=== PATIENT | male | born 1995 | race Two or more races ===

== ENCOUNTER 2016-12-30 01:30 | Emergency (ER) | payer OTHER ==
--- NOTE | 2016-12-30 02:15 | EDPHY ---
H & P Stated Complaint: wants to be check for HIV Time Seen by Provider: 12/30/16 02:13 HPI/ROS: Chief complaint: Possible HIV exposure HPI: 21-year-old male is presenting requesting post exposure prophylaxis. Patient states that he engaged in unprotected anal intercourse several hours ago while intoxicated. Patient states that the partner was high risk any does not know them. He does not have a history of medical problems. Takes no medications. No allergies to medications. Denies any other complaints at this time. ROS: 10 point Review of Systems is negative except as noted in the HPI. Past medical history: None Medications: None Allergies: None Physical exam: Gen: Awake, Alert, No Distress HEENT: Nose: no rhinorrhea Eyes: PERRLA, EOMI Mouth: Moist mucosa Neck: Supple, no JVD Chest: nontender, lungs clear to auscultation Heart: S1, S2 normal, no murmur Abd: Soft, non-tender, no guarding Back: no CVA tenderness, no midline tenderness Ext: no edema, non-tender Skin: no rash Neuro: CN II-XII intact, Sensation grossly intact, Strength 5/5 in bilateral upper and lower extremities - Personal History Current Tetanus Diphtheria and Acellular Pertussis (TDAP): No - Medical/Surgical History Hx Asthma: No Hx Chronic Respiratory Disease: No Hx Diabetes: No Hx Cardiac Disease: No Hx Renal Disease: No Hx Cirrhosis: No Hx Alcoholism: No Hx HIV/AIDS: No Hx Splenectomy or Spleen Trauma: No - Social History Smoking Status: Never smoked Constitutional: Initial Vital Signs Temperature (C) 36.7 C 12/30/16 01:36 Heart Rate 89 12/30/16 01:36 Respiratory Rate 20 12/30/16 01:36 Blood Pressure 114/75 12/30/16 01:36 O2 Sat (%) 95 12/30/16 01:36 O2 Delivery Mode Room Air Allergies/Adverse Reactions: No Known Allergies Allergy (Unverified 12/30/16 01:35) Home Medications: Medication Instructions Recorded Emtricitabine/Tenofovir [Truvada 1 tab PO DAILY #3 tab 12/30/16 200MG/300MG (*)] Raltegravir [Isentress] 400 mg PO BID #6 tab 12/30/16 Medical Decision Making ED Course/Re-evaluation: 21-year-old male requesting HIV prophylaxis. - Data Points Laboratory Results: Laboratory Results 12/30/16 02:35 12/30/16 02:35 12/30/16 12/30/16 12/30/16 02:35 02:35 02:35 WBC RBC Hgb Hct MCV MCH MCHC RDW Plt Count MPV Neut % (Auto) Lymph % (Auto) [place] % (Auto) Eos % (Auto) Baso % (Auto) Nucleat RBC Rel Count Absolute Neuts (auto) Absolute Lymphs (auto) Absolute Monos (auto) Absolute Eos (auto) Absolute Basos (auto) Absolute Nucleated RBC Immature Gran % Immature Gran # Sodium 141 mEq/L mEq/L (134-144) Potassium 4.1 mEq/L mEq/L (3.5-5.2) Chloride 104 mEq/L mEq/L (97-110) Carbon Dioxide 25 mEq/l mEq/l (22-31) Anion Gap 12 mEq/L mEq/L (8-16) BUN 11 mg/dL mg/dL (7-23) Creatinine 0.9 mg/dL mg/dL (0.7-1.3) Estimated GFR > 60 Glucose 92 mg/dL mg/dL (70-100) Calcium 9.8 mg/dL mg/dL (8.5-10.4) Total Bilirubin 0.7 mg/dL mg/dL (0.1-1.4) Conjugated Bilirubin 0.3 mg/dL mg/dL (0.0-0.5) Unconjugated Bilirubin 0.4 mg/dL mg/dL (0.0-1.1) AST 18 IU/L IU/L (17-59) ALT 32 IU/L IU/L (21-72) Alkaline Phosphatase 50 IU/L IU/L (38-126) Total Protein 7.3 g/dL g/dL (6.3-8.2) Albumin 4.5 g/dL g/dL (3.5-5.0) Hep Bs Antigen Pending Hep Bs Antibody Pending Hep Bs Antibody, Quant Pending Hepatitis C Antibody Pending HIV 1&2 Antibody Pending 12/30/16 02:35 WBC 9.03 10^3/uL 10^3/uL (3.80-9.50) RBC 5.07 10^6/uL 10^6/uL (4.40-6.38) Hgb 15.2 g/dL g/dL (13.7-17.5) Hct 43.8 % % (40.0-51.0) MCV 86.4 fL fL (81.5-99.8) MCH 30.0 pg pg (27.9-34.1) MCHC 34.7 g/dL g/dL (32.4-36.7) RDW 12.0 % % (11.5-15.2) Plt Count 279 10^3/uL 10^3/uL (150-400) MPV 10.3 fL fL (8.7-11.7) Neut % (Auto) 78.4 % H % (39.3-74.2) Lymph % (Auto) 12.7 % L % (15.0-45.0) [place] % (Auto) 7.6 % % (4.5-13.0) Eos % (Auto) 0.8 % % (0.6-7.6) Baso % (Auto) 0.2 % L % (0.3-1.7) Nucleat RBC Rel Count 0.0 % % (0.0-0.2) Absolute Neuts (auto) 7.07 10^3/uL H 10^3/uL (1.70-6.50) Absolute Lymphs (auto) 1.15 10^3/uL 10^3/uL (1.00-3.00) Absolute Monos (auto) 0.69 10^3/uL 10^3/uL (0.30-0.80) Absolute Eos (auto) 0.07 10^3/uL 10^3/uL (0.03-0.40) Absolute Basos (auto) 0.02 10^3/uL 10^3/uL (0.02-0.10) Absolute Nucleated RBC 0.00 10^3/uL 10^3/uL (0-0.01) Immature Gran % 0.3 % % (0.0-1.1) Immature Gran # 0.03 10^3/uL 10^3/uL (0.00-0.10) Sodium Potassium Chloride Carbon Dioxide Anion Gap BUN Creatinine Estimated GFR Glucose Calcium Total Bilirubin Conjugated Bilirubin Unconjugated Bilirubin AST ALT Alkaline Phosphatase Total Protein Albumin Hep Bs Antigen Hep Bs Antibody Hep Bs Antibody, Quant Hepatitis C Antibody HIV 1&2 Antibody Medications Given: Discontinued Medications Raltegravir (Isentress) 400 mg PO EDNOW ONE Stop: 12/30/16 02:30 Last Admin: 12/30/16 02:56 Dose: 400 mg Departure - Departure Disposition: Home, Routine, Self-Care Clinical Impression: HIV exposure Condition: Good Instructions: Postexposure Prophylaxis (ED) Additional Instructions: Follow up with Dr. Billy, infectious disease, on Sunday. Continue taking your post exposure prophylaxis medications until your seen by the Infectious Disease doctor. Referrals: NONE *PRIMARY CARE P,. [Primary Care Provider] - As per Instructions Mary Beth Billy MD [Medical Doctor] - As per Instructions Prescriptions: Emtricitabine/Tenofovir [Truvada 200MG/300MG (*)] 1 tab PO DAILY #3 tab Raltegravir [Isentress] 400 mg PO BID #6 tab
[2016-12-30] MEDS ORDERED: RALTEGRAVIR 400 MG TAB PO ONE (02:29)
[2016-12-30] MEDS ORDERED: EMTRICITABINE/TENOFOVIR 200MG/300MG TAB PO ONE (02:43)
[2016-12-30 03:06] LABS: % IMMATURE GRANULYOCYTES 0.3 % (0.0-1.1); ABSOLUTE IMMATURE GRANULOCYTES 0.03 10^3/uL (0.00-0.10); ADD DIFF? NO; ADD MORPH? NO; ADD SCAN? NO; ATYPICAL LYMPHOCYTE FLAG 0 (0-99); FRAGMENT RBC FLAG 0 (0-99); HEMATOCRIT 43.8 % (40.0-51.0); HEMOGLOBIN 15.2 g/dL (13.7-17.5); LEFT SHIFT FLG 0 (0-99); LIPEMIA HEMOLYSIS FLAG 90 (0-99); MEAN CELL HEMOGLOBIN CONCENTR. 34.7 g/dL (32.4-36.7); MEAN CELL VOLUME 86.4 fL (81.5-99.8); MEAN PLATELET VOLUME 10.3 fL (8.7-11.7); PLATELET CLUMPS FLAG 0 (0-99); PLATELET COUNT 279 10^3/uL (150-400); RED BLOOD CELL COUNT 5.07 10^6/uL (4.40-6.38)
[2016-12-30 03:25] LABS: ALANINE AMINOTRANSFERASE 32 IU/L (21-72); ALBUMIN 4.5 g/dL (3.5-5.0); ALKALINE PHOSPHATASE 50 IU/L (38-126); ANION GAP 12 mEq/L (8-16); ASPARTATE AMINOTRANSFERASE 18 IU/L (17-59); BILIRUBIN,TOTAL 0.7 mg/dL (0.1-1.4); BILIRUBIN-CONJUGATED 0.3 mg/dL (0.0-0.5); BILIRUBIN-UNCONJUGATED 0.4 mg/dL (0.0-1.1); CALCIUM 9.8 mg/dL (8.5-10.4); CARBON DIOXIDE 25 mEq/l (22-31); CHLORIDE 104 mEq/L (97-110); CREATININE 0.9 mg/dL (0.7-1.3); GLOMERULAR FILTRATION RATE > 60; GLUCOSE 92 mg/dL (70-100); POTASSIUM 4.1 mEq/L (3.5-5.2); SODIUM 141 mEq/L (134-144); TOTAL PROTEIN 7.3 g/dL (6.3-8.2)
[2016-12-30 03:56] VITALS: BP 110/72; PULSE 80; RESP 16; TEMP 97.9; O2SAT 97
[2016-12-30] MEDS ORDERED: EMTRICITABINE/TENOFOVIR 200MG/300MG TAB PO SCH (08:00)
[2017-01-01 12:02] LABS: HEPATITIS Bs Ab QUANT 47.5 mIU/mL
== END 2016-12-30 03:55 | disposition home or self-care (01) ==
LOC: EEVIPCON 01:30
DX: Z20.6 Contact with and (suspected) exposure to human immunodeficiency virus [HIV] (principal)
CPT/HCPCS: G0472